=== PATIENT | male | born 1960 | race Caucasian/White ===

== ENCOUNTER 2019-10-25 21:28 | Emergency (ER) | payer SELFPAY ==
[2019-10-25 21:51] LABS: Hemoglobin 14.8 g/dL (14.0-18.0); Mean Corpuscular Hemoglobin 29.5 pg (27.0-31.0); Mean Corpuscular Volume 94.9 fL (78.0-98.0); Mean Platelet Volume 7.6 fL (7.4-10.4); Platelet Count 180 thou/uL (130-400); RBC Distribution Width 12.1 % (11.5-14.5); Red Blood Cell (RBC) Count 5.02 mill/uL (4.70-6.10); White Blood Cell (WBC) Count 12.6 thou/uL (4.8-10.8)
[2019-10-25 21:59] LABS: INR-International Normal Ratio 1.2
[2019-10-25 22:00] LABS: PTT 35.9 SEC (22.9-36.1)
[2019-10-25 22:06] LABS: ALT (SGPT) 135 U/L (8-55); AST (SGOT) 118 U/L (5-34); Albumin 3.5 g/dL (3.5-5.0); Alkaline Phosphatase 57 U/L (40-110); Anion Gap 27 mmol/L (10-20); BUN (Urea Nitrogen) 16 mg/dL (8.4-25.7); Bilirubin, Total 0.6 mg/dL (0.2-1.2); Calc. Creatinine Clearance 0 mL/min (70-130); Carbon Dioxide 15 mmol/L (22-29); Chloride 106 mmol/L (98-107); Estimated GFR-MDRD 37; Glucose 309 mg/dL (70-105); Potassium 3.6 mmol/L (3.5-5.1); Protein, Total 5.5 g/dL (6.0-8.3); Sodium 144 mmol/L (136-145)
[2019-10-25 22:07] LABS: Band 4 % (5-11); Eosinophils 2 % (0-10); Lymphocytes 42 % (21-51); MDiff Complete? YES; Monocytes 6 % (0-10); Neutrophil 29 % (42-75); Platelet Morphology Comment Appears Adequate; RBC Morphology Normal; Reactive Lymphocytes 17 % (0-10)
[2019-10-25 22:09] LABS: Critical Call Chem-Lactate 13.5; Lactic Acid 13.5 mmol/L (0.5-2.2)
[2019-10-25 22:10] LABS: CKMB 2.3 ng/mL (0-6.6)
[2019-10-25] MEDS ORDERED: Norepinephrine 4 MG/4 ML VIAL ONE (22:17)
[2019-10-25] MEDS ORDERED: Heparin 5,000 UNITS/ML VIAL ONE (22:53)
[2019-10-25] MEDS ORDERED: Heparin 10,000 UNITS/ 10 ML VIAL ONE (22:54)
[2019-10-26] MEDS ORDERED: Sodium Chloride 0.9% 1,000 ML ONE (23:09)
[2019-10-26] MEDS ORDERED: Norepinephrine 4 MG/4 ML VIAL ONE ×2 (23:10→23:12)
[2019-10-26] MEDS ORDERED: EPINEPHrine 1 MG/ML AMP ONE ×2 (23:14)
[2019-10-26] MEDS ORDERED: Amiodarone 150 MG/3 ML VIAL ONE (23:14)
[2019-10-26] MEDS ORDERED: Dextrose 5% in Water 250 ML ONE (23:15)
[2019-10-26] MEDS ORDERED: Sodium Bicarb 50 MEQ/50 ML Abboject 8.4% SYRINGE ONE (23:15)
[2019-10-26] MEDS ORDERED: Calcium Chloride 1 GM/10 ML Abboject SYRINGE ONE (23:16)
[2019-10-26] MEDS ORDERED: Atropine Sulfate 1 mg/10 ml Syringe ONE (23:16)
== END 2019-10-25 23:13 | disposition short-term general hospital (02) ==
LOC: MADERS 21:28 → EDBD 21:28 → MADERS 23:13
DX: I46.9 Cardiac arrest, cause unspecified (principal); I10 Essential (primary) hypertension; E11.9 Type 2 diabetes mellitus without complications
CPT/HCPCS: 51702; 80053; 82553; 83605; 84484; 85025; 85610; 85730; 94760; 96365; 96374; 96375; 96376; J1644; J7070